=== PATIENT | male | born 1980 | race African-American/Black ===

== ENCOUNTER 2017-01-05 13:05 | Emergency (ER) | payer MEDICAID, OTHER ==
[~2017-01-05] VITALS: Ht 185.4 cm; Wt 85.7 kg
[2017-01-05 14:07] VITALS: BP 120/72
[2017-01-05] MEDS ORDERED: KETOROLAC TROMETH 60MG/2ML VIAL IM ONE (14:15)
[2017-01-05] MEDS ORDERED: METHOCARBAMOL 500 MG TAB PO ONE (14:15)
== END 2017-01-05 16:55 | disposition home or self-care (01) ==
LOC: ER 13:05
DX: S16.1XXA Strain of muscle, fascia and tendon at neck level, initial encounter (principal); G89.29 Other chronic pain; M54.9 Dorsalgia, unspecified; X58.XXXA Exposure to other specified factors, initial encounter; Y93.84 Activity, sleeping; Y99.8 Other external cause status; Y92.89 Other specified places as the place of occurrence of the external cause
CPT/HCPCS: 72040; 96372; 99284; J1885